=== PATIENT | female | born 1950 | race Caucasian/White ===

== ENCOUNTER 2018-05-05 12:59 | Outpatient (CLI) | payer MEDICARE, BC ==
--- NOTE | 2018-05-05 13:19 | RAD ---
CHEST PA AND LATERAL: History: 67-year-old female with history of dyspnea. Comparison: 05-10-09 FINDINGS: Old granuloma calcification changes. Heart size within normal limits. No confluent pneumonia or overt edema. Mild stable linear changes in the bases. IMPRESSION: Mild stable chronic changes. Atherosclerosis of the aorta. Old granulomatous disease, stable from chin or study. POS: [facility]
== END 2018-05-05 13:00 | disposition home or self-care (01) ==
LOC: RAD 12:59
PROVIDERS: ATTEND Internal Medicine Pulmonary Disease
DX: R06.00 Dyspnea, unspecified (principal); I70.0 Atherosclerosis of aorta; D71 Functional disorders of polymorphonuclear neutrophils
CPT/HCPCS: 71046

== ENCOUNTER 2018-09-21 15:55 | Observation (INO) | payer MEDICARE, BC ==
[2018-09-21 16:46] LABS: #Basophils 0.1 thou/uL (0.0-0.2); #Eosinphils 0.1 thou/uL (0.0-0.7); #Lymphocytes 2.5 thou/uL (1.20-3.40); #Monocytes 0.3 thou/uL (0.11-0.59); #Neutrophils 3.9 thou/uL (1.40-6.50); %Basophils 0.9 % (0.0-1.0); %Eosinophils 1.7 % (0.0-10.0); %Lymphocytes 36.2 % (21.0-51.0); %Monocytes 4.4 % (0.0-10.0); %Neutrophils 56.8 % (42.0-75.0); Hemoglobin 11.4 g/dL (12.0-16.0); Mean Corpuscular HGB CONC 32.8 g/dL (32.0-36.0); Mean Corpuscular Hemoglobin 29.9 pg (27.0-31.0); Mean Corpuscular Volume 91.1 fL (78.0-98.0); Mean Platelet Volume 7.9 fL (7.4-10.4); Platelet Count 224 thou/uL (130-400); RBC Distribution Width 11.6 % (11.5-14.5); Red Blood Cell (RBC) Count 3.81 mill/uL (4.20-5.40); White Blood Cell (WBC) Count 6.8 thou/uL (4.8-10.8)
[2018-09-21 16:59] LABS: Anion Gap 13 mmol/L (10-20); BUN (Urea Nitrogen) 11 mg/dL (9.8-20.1); Calc. Creatinine Clearance 0 mL/min (70-130); Calcium 9.1 mg/dL (7.8-10.44); Carbon Dioxide 25 mmol/L (23-31); Chloride 107 mmol/L (98-107); Estimated GFR-MDRD 67; Glucose 112 mg/dL (80-115); Potassium 3.9 mmol/L (3.5-5.1); Sodium 141 mmol/L (136-145)
[2018-09-21 17:04] LABS: CKMB 0.8 ng/mL (0-6.6); Troponin I Less than 0.010 ng/mL (< 0.028)
--- NOTE | 2018-09-21 17:58 | RAD ---
CHEST TWO VIEWS: History: Cough. Comparison: 07-17-06 FINDINGS: Calcified granuloma left lower lobe. No focal airspace consolidation, pneumothorax or effusion. No ac danny osseous abnormality. IMPRESSION: No acute intrathoracic abnormality. POS: [facility]
--- NOTE | 2018-09-21 18:01 | CT ---
BRAIN CT WITHOUT IV CONTRAST: History: 68-year-old female with history of right facial droop. FINDINGS: No focal mass or midline shift. No intra or extraaxial hemorrhage. There is some minimal patchy low a ttenuation changes bilaterally in the subcortical region, somewhat more marked on the left side. This certainly could represent changes of acute or subacute infarct. IMPRESSION: Low attenuation changes bilaterally in the subcortical regions, more focally prominent in the left pa rietal region. This could represent acute-subacute infarct changes versus more remote change. No mass or bleed. If there is clinical concern for acute infarct, follow up MRI should be considered. POS: [facility]
[2018-09-21] MEDS ORDERED: Acetaminophen 325 MG TAB PO PRN ×2 (18:35→20:11)
[2018-09-21] MEDS ORDERED: Albuterol Sulfate 2.5 mg/3 ml Neb NEB PRN (18:36)
[2018-09-21 18:52] VITALS: BMI 27.9
[2018-09-21] MEDS ORDERED: PROVENTIL INHALER 6.7 G (200 INHALATIONS) INH PRN (20:11)
[2018-09-21] MEDS ORDERED: traMADol HCl 50 MG TAB PO PRN (20:11)
[2018-09-21] MEDS ORDERED: ALPRAZolam 0.5 MG TAB PO PRN (20:11)
[2018-09-21] MEDS ORDERED: Acetaminophen 500 MG TAB PO PRN (20:11)
[2018-09-21] MEDS ORDERED: Lorazepam 2 MG/ML VIAL SLOW IVP PRN (20:14)
[2018-09-21 20:34] LABS: Troponin I Less than 0.010 ng/mL (< 0.028)
[2018-09-21] MEDS ORDERED: Zolpidem Tartrate 5 MG TAB PO SCH ×2 (21:00)
[2018-09-21] MEDS ORDERED: Atorvastatin Calcium 20 MG TAB PO SCH (21:00)
[2018-09-21] MEDS ORDERED: Montelukast Sodium 10 mg Tablet PO SCH (21:00)
[2018-09-21] MEDS: Brimonidine Tartrate 0.2% Ophth Soln 5 ml Bottle EA EYE SCH (21:16)
[2018-09-21] MEDS: Timolol 0.5% Ophth Soln 5 ml Bottle EA EYE SCH (21:17)
--- NOTE | 2018-09-21 22:24 | HP ---
PRIMARY CARE PHYSICIAN: Dr. Rakesh Bai. CHIEF COMPLAINT: 1. Coughing and shortness of breath for few weeks. 2. ER physician noted right facial droop. HISTORY OF PRESENT ILLNESS: Ms. Garcia is a pleasant 68-year-old female that has a history of asthma as well as generalized anxiety. She was in her usual state of health until the last couple of days. She says that she has been having cough and shortness of breath. She says it has been positive for phlegm which has been clear. She has not noticed any wheezing. She says that she knows she has asth ma, but at this time that her symptoms had been worse. 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 For this reason, she went to Urgent Care and i n their evaluation, they noticed that her right face seemed to be drooping. The patient herself had not noticed it. I asked her who is at the bedside and he said he had not really noticed much of a change, but they did a CT scan on her and noticed an area of low attenuation and they were conc erned that she may have had a stroke and she was sent over for further evaluation. The patient denie s any weakness in any of her extremities. She does admit to a slight headache. She denies any drool ing, dysarthria or difficulty swallowing. She denies any numbness in her arms or legs. REVIEW OF SYSTEMS: All systems were reviewed and are negative except for that mentioned in the histo ry of present illness. PAST MEDICAL HISTORY: Significant for gastroesophageal reflux disease, hyperlipidemia, glaucoma, ost eoarthritis, asthma. She says she has this since she has been an adult and for the past 15 years and also generalized anxiety. PAST SURGICAL HISTORY: She has had a hysterectomy and a left knee replacement. ALLERGIES: ASPIRIN which causes her to wheeze as well as IBUPROFEN, PENICILLIN, SULFA. SOCIAL HISTORY: She is . She is a nonsmoker and nondrinker. She would like to be a FULL COD E. FAMILY HISTORY: Significant for breast cancer. CURRENT MEDICATIONS: Include Ambien 10 mg at bedtime, tramadol 50 mg 2 tablets q.i.d. as needed, ome prazole 40 mg daily, Singulair 10 mg daily, fluoxetine 20 mg daily, Symbicort 160/4.5 one puff twice daily, timolol eyedrops, Lumigan eyedrops, atorvastatin 20 mg at bedtime, Xanax 0.5 mg twice a day an d albuterol 2 puffs q.i.d. PHYSICAL EXAMINATION: GENERAL: She is alert and oriented. She appears to be in no acute distress. She is well-developed and well-nourished. VITAL SIGNS: Blood pressure was 171/86, heart rate 72, respiratory rate of 20, temperature is 99.1, O2 sat was 96% on room air. HEENT: Pupils are equal, round, and reactive. Extraocular muscles are intact. Her sclerae are anic teric. Throat: There is no erythema, no exudates. NECK: No adenopathy, no bruits, no jugular venous distention. LUNGS: Clear to auscultation. She did have some rhonchi in the left base, but no jose wheezing. CARDIOVASCULAR: She had a normal S1 and S2. I did not appreciate an S3 or an S4. I did not appreci ate any murmurs, clicks or rubs. ABDOMEN: Obese, it is soft. It is nontender, nondistended. Positive for bowel sounds. There is no rebound, no guarding, no organomegaly. MUSCULOSKELETAL: There is no muscle tenderness. No joint effusions noted or crepitus. NEUROLOGIC: She may have just a very faint or subtle droop on the right corner of her mouth. She wa s able to smile and it looked normal. Otherwise, the remainder of her cranial nerves were intact. H er muscle strength is 5/5 in both upper and lower extremities. SKIN/INTEGUMENT: There are no skin changes and no rash. IMAGING DATA AND LABORATORY DATA: On her EKG by my reading it is sinus rhythm, the rate was approxim ately 70. There were no ST wave changes. Sodium 141, potassium 3.9, chloride is 107, CO2 is 25, BUN of 11, creatinine 0.84, glucose is 112. Troponin is less than 0.010. White blood cell count 6.8, h emoglobin 11.4, hematocrit is 34.7, platelet count is 224. On her CT scan, there was evidence of low attenuation changes in the bilateral subcortical region, could possibly represent a subacute infarct . She had a chest x-ray that was read by me and it looked normal with a normal heart size and no akhil dence of any airspace disease. ASSESSMENT AND PLAN: 1. This is a 68-year-old female that was sent over from the Urgent Care due to a possible right faci al droop and concern for a subacute stroke. The changes on physical are extremely subtle. We will g et an MRI to get a better quality assessment of the area seen on CT scan. We will also get bilateral carotid Dopplers and an echo and monitor her on telemetry for atrial fibrillation. We will hold off on any antiplatelet therapy that is unless an actual stroke is found. 2. For what seems to be an acute bronchitis. This can be treated with azithromycin as well as Capri rose as needed and likely she can be sent home with this. 3. Generalized anxiety. We will place her on a p.r.n. benzodiazepine and she states that she typica lly does not need something for sleep every night.
[2018-09-21 23:07] LABS: Troponin I Less than 0.010 ng/mL (< 0.028)
[2018-09-22 04:30] LABS: Cardiac Risk 2.8 (Less than 4.5)
[2018-09-22] MEDS ORDERED: Mometasone/Formoterol 120 PUFF INHALER INH SCH (06:30)
[2018-09-22] MEDS: Timolol 0.5% Ophth Soln 5 ml Bottle EA EYE SCH (07:50)
[2018-09-22] MEDS: Brimonidine Tartrate 0.2% Ophth Soln 5 ml Bottle EA EYE SCH (07:52)
--- NOTE | 2018-09-22 08:45 | ULT ---
CAROTID DOPPLER: DATE: 09/22/2018. PROVIDED CLINICAL HISTORY: Right-sided facial droop. FINDINGS: Vasquez scale and color Doppler sonography with spectral analysis was performed of the extracranial giron tid system bilaterally. No significant atherosclerotic plaque is visualized. There is no evidence f or a hemodynamically significant internal carotid artery stenosis by peak systolic velocity or ratio criteria. Antegrade flow is seen in the vertebral arteries. IMPRESSION: No sonographic evidence for a hemodynamically significant internal carotid artery stenosis. POS: [facility]
[2018-09-22] MEDS ORDERED: Latanoprost 0.005% Ophth Soln 2.5 ml Bottle R EYE SCH (09:00)
[2018-09-22] MEDS ORDERED: FLUoxetine HCl 20 MG CAP PO SCH (09:00)
[2018-09-22] MEDS ORDERED: Azithromycin 250 MG TAB PO SCH (09:00)
[2018-09-22] MEDS ORDERED: Enoxaparin Sodium 40 MG/0.4 ML SYRINGE SC SCH (09:00)
[2018-09-22 11:44] VITALS: BP 140/74; TEMP 99.5
[2018-09-22] MEDS ORDERED: Clopidogrel Bisulfate 75 MG TAB PO SCH (13:30)
--- NOTE | 2018-09-22 13:57 | DIS ---
PRIMARY CARE PHYSICIAN: Dr. Rakesh Bai MANAGER PHARMACEUTICAL: Dr. Nadeem Romero DATE OF ADMISSION: 09/21/2018 DATE OF DISCHARGE: 09/22/2018 DISCHARGE DIAGNOSES: 1. Right-sided facial droop, likely chronic. 2. Cerebral vascular disease with chronic strokes. 3. Essential hypertension. 4. Gastroesophageal reflux disease. 5. Hyperlipidemia. 6. Glaucoma. 7. Osteoarthritis. 8. Asthma managed by Dr. Romero. CONSULTATIONS: Neurology, Dr. Hugn. PROCEDURES: 1. A 2D echocardiogram, grossly normal, result pending. 2. Brain MRI with chronic microvascular ischemic changes and chronic left parietal gliosis, but no a cute infarct. HISTORY AND PHYSICAL: Ms. Garcia a 68-year-old female with a recent worsening of her new asthma and c ough who presented to an outside urgent care facility. There she was felt to have a very mild right-sided facial droop and was subsequently sent to our hosp ital for further workup and evaluation. CT scan was done that showed possible area of stroke. HOSPITAL COURSE: The patient was seen and examined by Dr. Wright on admission. Neurology was consul preethi. The patient was placed in observation. MRI was obtained. The patient was not started on aspir in due to a history of aspirin allergy, was continued on her home Lipitor. Overnight, she remained stable. I spoke with her daughter this morning. Her face is stable from her chronic appearance, but daughter does admit to there being a little bit of right-sided drooping and that may be chronic in nature. Her MRI was done that showed no acute infarct. The patient was start ed on Plavix at the recommendation of Neurology due to aspirin allergy and she was otherwise stable f or discharge with outpatient followup. PHYSICAL EXAMINATION: The patient was seen and examined on the date of discharge. Discharge plan and disposition was discussed with the patient and her [facility]. DISCHARGE MEDICATIONS: New medication: 1. Doxycycline 100 mg p.o. b.i.d. for 10 days. 2. Plavix 75 mg daily, indefinitely. HOME MEDICATIONS TO CONTINUE: 1. Tylenol p.r.n. 2. Albuterol sulfate HFA 2 puffs q.6. p.r.n. 3. Xanax 0.5 mg p.o. b.i.d. p.r.n. 4. Lipitor 20 mg p.o. at bedtime. 5. Lumigan 1 drop right eye daily. 6. Timolol 1 drop each eye q.12h. 7. Budesonide/formoterol 1 puff inhaled b.i.d. 8. Fluoxetine 20 mg daily. 9. Singulair 10 mg daily. 10. Prilosec 40 mg daily. 11. Tramadol 50 mg two p.o. q.i.d. p.r.n. 12. Ambien 10 mg p.o. at bedtime. FOLLOWUP APPOINTMENTS: 1. Dr. Bai within a week. 2. Dr. Hung as needed. 3. Dr. Romero to reschedule as she missed her appointment a few days ago. DISCHARGE CONDITION: Stable. DISPOSITION: Discharged home via private vehicle with the daughter. DISCHARGE ACTIVITY: Per cardiopulmonary limits. DISCHARGE DIET: Heart healthy diet recommended.
--- NOTE | 2018-09-22 14:54 | MRI ---
MRI BRAIN WITHOUT CONTRAST: HISTORY: Right facial droop, TIA. FINDINGS: Correlation is made with the CT scan of previous day. No restricted diffusion is seen. There are multiple foci of T2 prolongation in the periventricular w selina matter. There is a small area of gliosis in the left parietal lobe. No hemorrhage, midline acin ft, or abnormal extraaxial fluid collections are seen. There is a mucous retention cyst versus poly in the left maxillary sinus. No tonsillar herniation is seen. IMPRESSION: No evidence of acute intracranial process. POS: [facility]
[2018-09-23] MEDS ORDERED: Clopidogrel Bisulfate 75 MG TAB PO SCH (09:00)
== END 2018-09-22 13:59 | disposition home or self-care (01) ==
LOC: SCSER 15:55 → 2SW 17:12
PROVIDERS: ADMIT Internal Medicine; ATTEND Internal Medicine
DX: R29.810 Facial weakness (principal); R06.02 Shortness of breath; I99.8 Other disorder of circulatory system; F41.1 Generalized anxiety disorder; J45.909 Unspecified asthma, uncomplicated; K21.9 Gastro-esophageal reflux disease without esophagitis; E78.5 Hyperlipidemia, unspecified; M19.90 Unspecified osteoarthritis, unspecified site; Z79.51 Long term (current) use of inhaled steroids; Z79.899 Other long term (current) drug therapy; Z88.0 Allergy status to penicillin; Z88.2 Allergy status to sulfonamides; Z88.8 Allergy status to other drugs, medicaments and biological substances
CPT/HCPCS: 70450; 70551; 71046; 80048; 80061; 82553; 84484 ×2; 85025; 93880; 94640 ×2; 96372; 96374; 99285; G0378 ×2; 36415; J1650; J2060; J7620

== ENCOUNTER 2019-08-05 11:08 | Outpatient (CLI) | payer MEDICARE, BC ==
--- NOTE | 2019-08-05 11:53 | MMO ---
Bilateral MAMMO Bilat Screen [facility]DI[facility]. CLINICAL HISTORY: Patient is 69 years old and is seen for screening. The patient has the following family history of breast cancer: mother; aunt and cousin female. The patient has no personal history of cancer. The patient has a history of right Excisional Biopsy - benign - 20 YRS AGO. VIEWS: The views performed were: bilateral craniocaudal; bilateral craniocaudal with tomosynthesis; and bilateral mediolateral oblique with tomosynthesis. FILMS COMPARED: The present examination has been compared to a prior imaging study performed at [facility] on 01/11/2017. This study has been interpreted with the assistance of computer-aided detection. MAMMOGRAM FINDINGS: The breasts are heterogeneously dense, which could obscure a lesion on mammography. Finding 1: There is an asymmetry seen in the middle central region of the left breast. Finding 2: There are stable post operative changes seen in the right breast. IMPRESSION: FINDING 1: ASYMMETRY IN THE LEFT BREAST REQUIRES ADDITIONAL EVALUATION. RECOMMEND DIAGNOSTIC MAMMOGRAM. ULTRASOUND MAY ALSO PROVE USEFUL AT RECALL. THE RESULTS OF THIS EXAM WERE SENT TO THE PATIENT. ACR BI-RADS Category 0 - Incomplete: Need additional imaging evaluation. [facility] will notify the patient of the need for additional imaging services. MAMMOGRAPHY NOTE: 1. A negative mammogram report should not delay a biopsy if a dominant of clinically suspicious mass is present. 2. Approximately 10% to 15% of breast cancers are not detected by mammography. 3. Adenosis and dense breasts may obscure an underlying neoplasm. Reported by: LUIS ANTONIO HUNT MD Electonically Signed: [id number]
== END 2019-08-05 11:09 | disposition home or self-care (01) ==
LOC: BICMAMMO 11:08
PROVIDERS: ATTEND Internal Medicine
DX: Z12.31 Encounter for screening mammogram for malignant neoplasm of breast (principal); N64.89 Other specified disorders of breast
CPT/HCPCS: 77063; 77067

== ENCOUNTER 2019-08-13 09:16 | Outpatient (CLI) | payer MEDICARE, BC ==
--- NOTE | 2019-08-19 12:42 | MMO ---
Left Breast Shon 3D Diagnostic Additional Vw Lt W CAD. CLINICAL HISTORY: Patient is 69 years old and is seen for additional evaluation requested from prior study. The patient has the following family history of breast cancer: mother; aunt and cousin female. The patient has no personal history of cancer. The patient has a history of right Excisional Biopsy - benign - 20 YRS AGO. VIEWS: The views performed were: left craniocaudal spot compression with tomosynthesis and left mediolateral with tomosynthesis. FILMS COMPARED: The present examination has been compared to prior imaging studies performed at [facility] on 01/11/2017 and 08/05/2019. This study has been interpreted with the assistance of computer-aided detection. Standard digital mammography was supplemented by the acquisition of digital breast tomosynthesis. MAMMOGRAM FINDINGS: The breast is heterogeneously dense, which could obscure a lesion on mammography. Focal asymmetry presses out indicating benign superimposition of breast tissue. There are no suspicious masses, suspicious calcifications, or new areas of architectural distortion. IMPRESSION: THERE IS NO MAMMOGRAPHIC EVIDENCE OF MALIGNANCY. A ROUTINE FOLLOW-UP MAMMOGRAM IN 1 YEAR IS RECOMMENDED. ACR BI-RADS Category 2 - Benign finding MAMMOGRAPHY NOTE: 1. A negative mammogram report should not delay a biopsy if a dominant of clinically suspicious mass is present. 2. Approximately 10% to 15% of breast cancers are not detected by mammography. 3. Adenosis and dense breasts may obscure an underlying neoplasm. Transcribed Date/Time: 08/19/2019 12:42 PM
== END 2019-08-13 09:17 | disposition home or self-care (01) ==
LOC: BICMAMMO 09:16
PROVIDERS: ATTEND Internal Medicine
DX: Z12.31 Encounter for screening mammogram for malignant neoplasm of breast (principal); Z91.89 Other specified personal risk factors, not elsewhere classified; Z80.3 Family history of malignant neoplasm of breast
CPT/HCPCS: 77065; G0279

== ENCOUNTER 2021-02-07 08:34 | Outpatient (CLI) | payer MEDICARE, BC ==
[2021-02-07] MEDS ORDERED: Regadenoson 0.4 MG/5 ML SYRINGE ONE (09:31)
== END 2021-02-07 08:35 | disposition home or self-care (01) ==
LOC: NM 08:34
PROVIDERS: ATTEND Internal Medicine
DX: R07.9 Chest pain, unspecified (principal)
CPT/HCPCS: 78452; 93017; A9500; J2785

== ENCOUNTER 2022-03-08 11:12 | Outpatient (CLI) | payer MEDICARE, BC | END 2022-03-08 11:13 | disposition home or self-care (01) | LOC: BICMAMMO 11:12 | PROVIDERS: ATTEND Internal Medicine | DX: Z12.31 Encounter for screening mammogram for malignant neoplasm of breast (principal); Z80.3 Family history of malignant neoplasm of breast; Z91.89 Other specified personal risk factors, not elsewhere classified | CPT/HCPCS: 77063; 77067 ==

== ENCOUNTER 2023-05-23 15:19 | Outpatient (CLI) | payer MEDICARE, BC | END 2023-05-23 15:20 | disposition home or self-care (01) | LOC: RAD 15:19 | PROVIDERS: ATTEND Internal Medicine Critical Care Medicine | DX: R06.00 Dyspnea, unspecified (principal) | CPT/HCPCS: 71046 ==

== ENCOUNTER 2024-07-01 10:51 | Outpatient (CLI) | payer MEDICARE | END 2024-07-01 10:52 | disposition home or self-care (01) | LOC: RAD 10:51 | PROVIDERS: ATTEND Internal Medicine Critical Care Medicine | DX: R06.00 Dyspnea, unspecified (principal) | CPT/HCPCS: 71046 ==

== ENCOUNTER 2025-07-01 10:49 | Outpatient (CLI) | payer MEDICARE | END 2025-07-01 10:50 | disposition home or self-care (01) | LOC: RAD 10:49 | PROVIDERS: ATTEND Internal Medicine Critical Care Medicine | DX: R06.00 Dyspnea, unspecified (principal); I51.7 Cardiomegaly; J98.4 Other disorders of lung | CPT/HCPCS: 71046 ==